=== PATIENT | female | born 1980 | race Caucasian/White ===

== ENCOUNTER 2017-09-20 05:02 | Inpatient (IN) | payer OTHER ==
[2017-09-20] VITALS (7 sets, daily range): BP systolic 99–127; BP diastolic 54–65
[~2017-09-20] VITALS: Ht 167.6 cm; Wt 136.4 kg
[~2017-09-20 05:02] MED LIST: ADULT ASPIRIN R81 MG PO; BUPRENORPHINE HC8 MG SL; PRENATAL TABLE1 EAC3 PO; SYMBICORT60 INHALA1 IH; TUMS500 MG PO
[2017-09-20 06:17] LABS: BASOPHIL (%) 0.1 % (0-1); EOSINOPHIL (%) 0.6 % (0-5); EOSINOPHIL COUNT 0.1 K/uL (0-0.3); HEMATOCRIT 34.1 % (36.0-46.0); HEMOGLOBIN 10.9 G/DL (11.9-15.5); IMMATURE GRANULOCYTE (%) 0.4 % (0.0-0.7); LYMPHOCYTE (%) 20.6 % (15-42); LYMPHOCYTE COUNT 2.1 K/uL (1.0-2.8); MCH 27.7 PG (29.0-34.0); MCV 86.5 FL (83-99); MONOCYTE (%) 5.3 % (3-12); MONOCYTE COUNT 0.5 K/uL (0-0.8); NEUTROPHIL COUNT 7.3 K/uL (1.8-6.4); RBC DIS.WIDTH-CV 14.5 % (11.8-14.6); RBC DIS.WIDTH-SD 46.1 % (39-53); RED BLOOD COUNT 3.94 M/uL (3.80-5.20); WHITE BLOOD COUNT 10.1 K/uL (4.1-10.2)
[2017-09-20 06:41] LABS: PLAT.SUFFICIENCY ADEQUATE; PLATELET COUNT 206 K/uL (156-360)
[2017-09-20 15:20] LABS: BENZODIAZEPINES, URINE SCREEN Negative (200 ng/mL)
[2017-09-21 02:27] VITALS: BP 107/58
[2017-09-21 06:36] LABS: BASOPHIL (%) 0.1 % (0-1); EOSINOPHIL (%) 0.9 % (0-5); EOSINOPHIL COUNT 0.1 K/uL (0-0.3); HEMOGLOBIN 9.3 G/DL (11.9-15.5); IMMATURE GRANULOCYTE (%) 0.4 % (0.0-0.7); LYMPHOCYTE COUNT 2.5 K/uL (1.0-2.8); MCH 27.4 PG (29.0-34.0); MCV 88.2 FL (83-99); MONOCYTE (%) 5.9 % (3-12); MONOCYTE COUNT 0.5 K/uL (0-0.8); NEUTROPHIL (%) 63.7 % (45-76); NEUTROPHIL COUNT 5.4 K/uL (1.8-6.4); PLATELET COUNT 211 K/uL (156-360); RBC DIS.WIDTH-CV 14.9 % (11.8-14.6); RBC DIS.WIDTH-SD 48.2 % (39-53); WHITE BLOOD COUNT 8.5 K/uL (4.1-10.2)
[2017-09-21 07:43] VITALS: BP 110/70
[2017-09-21 11:29] VITALS: BP 132/65
[2017-09-21 14:18] VITALS: BP 102/56
[2017-09-21 19:15] VITALS: BP 115/56
[2017-09-21 23:00] VITALS: BP 104/65
[2017-09-22 02:42] VITALS: BP 120/57
[2017-09-22 07:57] VITALS: BP 112/71
[2017-09-22 15:06] VITALS: BP 119/74
[2017-09-22 19:15] VITALS: BP 119/78
[2017-09-22 23:00] VITALS: BP 117/75
[2017-09-23 02:22] VITALS: BP 97/52
[2017-09-24 07:35] VITALS: BP 116/65
[2017-09-24] MEDS ORDERED: ENDOCET 5-3251 EACH PO (09:07)
[2017-09-24] MEDS ORDERED: IBUPROFEN800 MG PO (09:07)
[2017-09-24] MEDS ORDERED: CHROMAGEN,1 CAPSULE PO (09:07)
[2017-09-24 12:35] VITALS: BP 114/75
[2017-09-24 15:13] VITALS: BP 123/71
[2017-09-24 19:45] VITALS: BP 141/81
== END 2017-09-24 21:15 | disposition home or self-care (01) | DRG 765 ==
LOC: 2SOUTH → 2WEST 05:02 → 2SOUTH 11:35 → 2WEST 09-24 21:15
PROVIDERS: Obstetrics & Gynecology
DX: O34.211 Maternal care for low transverse scar from previous cesarean delivery (principal); O99.824 Streptococcus B carrier state complicating childbirth; O98.32 Other infections with a predominantly sexual mode of transmission complicating childbirth; O99.02 Anemia complicating childbirth; D62 Acute posthemorrhagic anemia; A60.00 Herpesviral infection of urogenital system, unspecified; O99.214 Obesity complicating childbirth; E66.01 Morbid (severe) obesity due to excess calories; Z68.42 Body mass index [BMI] 45.0-49.9, adult; O99.324 Drug use complicating childbirth; F12.90 Cannabis use, unspecified, uncomplicated; F11.10 Opioid abuse, uncomplicated; O99.52 Diseases of the respiratory system complicating childbirth; J45.909 Unspecified asthma, uncomplicated; O75.89 Other specified complications of labor and delivery; R21 Rash and other nonspecific skin eruption; O12.04 Gestational edema, complicating childbirth; O99.334 Smoking (tobacco) complicating childbirth; F17.210 Nicotine dependence, cigarettes, uncomplicated; Z30.2 Encounter for sterilization; Z3A.39 39 weeks gestation of pregnancy; Z37.0 Single live birth; Z88.0 Allergy status to penicillin
CPT/HCPCS: 80306 90; 85025; 86850; 86900; 86901; 86920; 94640; 94640 76; J0571; J0690; J1885; J2274; J2405; J7120

== ENCOUNTER 2018-01-24 16:54 | Emergency (ER) | payer OTHER ==
[~2018-01-24] VITALS: Ht 167.6 cm; Wt 110.7 kg
[~2018-01-24 16:54] MED LIST changes: +CHROMAGEN,1 CAPSULE PO; +ENDOCET 5-3251 EACH PO; +IBUPROFEN800 MG PO
[2018-01-24 17:38] LABS: BASOPHIL (%) 0.1 % (0-1); EOSINOPHIL (%) 0.1 % (0-5); HEMATOCRIT 35.4 % (36.0-46.0); HEMOGLOBIN 11.3 G/DL (11.9-15.5); IMMATURE GRANULOCYTE (%) 0.3 % (0.0-0.7); LYMPHOCYTE (%) 9.5 % (15-42); LYMPHOCYTE COUNT 0.8 K/uL (1.0-2.8); MCH 26.3 PG (29.0-34.0); MCHC 31.9 G/DL (30.0-36.0); MCV 82.3 FL (83-99); MONOCYTE (%) 3.8 % (3-12); MONOCYTE COUNT 0.3 K/uL (0-0.8); NEUTROPHIL (%) 86.2 % (45-76); NEUTROPHIL COUNT 7.5 K/uL (1.8-6.4); PLATELET COUNT 241 K/uL (156-360); RBC DIS.WIDTH-CV 14.4 % (11.8-14.6); RBC DIS.WIDTH-SD 43.5 % (39-53); WHITE BLOOD COUNT 8.7 K/uL (4.1-10.2)
[2018-01-24 17:55] LABS: CHLORIDE 103 mEq/L (99-109); POTASSIUM 3.5 mEq/L (3.7-5.4); SODIUM 139 mEq/L (136-147)
[2018-01-24 17:56] LABS: GLUCOSE 127 mg/dL (70-99)
[2018-01-24 18:00] LABS: CREATININE 0.8 mg/dL (0.6-1.3); GFR ESTIMATE (CALCULATED) > 59 mL/min/
[2018-01-24 18:01] LABS: UREA NITROGEN (BUN) 5 mg/dL (9-23)
[2018-01-24] MEDS ORDERED: BACTRIM,SEPT1 TABLET PO (22:07)
[2018-01-24] MEDS ORDERED: DOXYCYCLINE MO100 MG PO (22:30)
[2018-01-24 23:07] VITALS: BP 123/77
== END 2018-01-24 23:38 | disposition home or self-care (01) ==
LOC: EME 16:54
PROC: 0H95XZZ Drainage of Chest Skin, External Approach (ICD-10-PCS; principal; 2018-01-24)
DX: L02.213 Cutaneous abscess of chest wall (principal); Z88.0 Allergy status to penicillin; Z88.2 Allergy status to sulfonamides; J45.909 Unspecified asthma, uncomplicated; F17.200 Nicotine dependence, unspecified, uncomplicated
CPT/HCPCS: 71046; 71260; 80048; 81003; 83605; 85025; 99281; 99285; J7040

== ENCOUNTER 2018-01-26 12:55 | Emergency (ER) | payer OTHER ==
[~2018-01-26] VITALS: Ht 167.6 cm; Wt 110.4 kg
[~2018-01-26 12:55] MED LIST changes: +BACTRIM,SEPT1 TABLET PO; +DOXYCYCLINE MO100 MG PO
[2018-01-26 13:32] VITALS: BP 161/92
== END 2018-01-26 13:33 | disposition home or self-care (01) ==
LOC: EME 12:55
DX: L02.414 Cutaneous abscess of left upper limb (principal); Z48.00 Encounter for change or removal of nonsurgical wound dressing; F17.200 Nicotine dependence, unspecified, uncomplicated
CPT/HCPCS: 99281; 99283

== ENCOUNTER 2018-01-28 13:08 | Emergency (ER) | payer OTHER ==
[~2018-01-28] VITALS: Ht 167.6 cm; Wt 110.9 kg
[2018-01-28 13:37] VITALS: BP 100/80
== END 2018-01-28 14:10 | disposition home or self-care (01) ==
LOC: EME 13:08
DX: Z48.01 Encounter for change or removal of surgical wound dressing (principal); Z87.442 Personal history of urinary calculi; Z87.19 Personal history of other diseases of the digestive system
CPT/HCPCS: 99281; 99284